=== PATIENT | male | born 1985 | race Caucasian/White ===

== ENCOUNTER 2024-12-31 08:44 | Day surgery (SDC) | payer OTHER ==
[~2024-12-31] VITALS: Ht 172.7 cm; Wt 89.8 kg
[~2024-12-31 08:44] MED LIST: AMIT25TA19 PO; HYDR-643 PO; LIDOCAINE 2% 100 MG/5 ML SDV (FOR ANES.) As Ordered ONE; MELO15TA28 PO; MIDAZOLAM INJ 2 MG/2 ML VIAL As Ordered ONE; PROPOFOL 1,000 MG/100 ML VIAL As Ordered ONE
[2024-12-31] MEDS ORDERED: LIDOCAINE 1% SDV 5 ML VIAL SC PRN (09:50)
[2024-12-31] MEDS: LR 1,000 ML IV SCH (09:50)
[2024-12-31] MEDS: ceFAZolin SOD 2 GM IV ONCE IV ONE (10:28)
[2024-12-31] MEDS: LIDOCAINE 1% MDV 20 ML VIAL As Ordered ONE (10:49)
[2024-12-31] MEDS ORDERED: ACETAMINOPHEN 1000MG/100ML IV BAG As Ordered ONE (10:57)
[2024-12-31 11:07] VITALS: BP 90/54; TEMP 98.1; O2SAT 96
== END 2024-12-31 11:36 | disposition home or self-care (01) ==
LOC: M SDC 08:44
PROVIDERS: ATTEND Podiatrist Foot & Ankle Surgery
DX: M20.5X1 Other deformities of toe(s) (acquired), right foot (principal); M25.571 Pain in right ankle and joints of right foot; I45.6 Pre-excitation syndrome; F41.9 Anxiety disorder, unspecified; F32.A Depression, unspecified; Z79.899 Other long term (current) drug therapy; F43.10 Post-traumatic stress disorder, unspecified; Z87.891 Personal history of nicotine dependence
CPT/HCPCS: 28289; 88300; J0131; J0665; J0688; J2250; J3010